=== PATIENT | male | born 1985 | race Caucasian/White ===

== ENCOUNTER 2021-03-29 02:06 | Day surgery (SDC) | payer OTHER, SELFPAY ==
[2021-03-18 15:41] VITALS: BMI 25.2
--- NOTE | 2021-03-28 13:53 | WPDANESEPPF ---
Anes - Initial Pre Proc Eval Procedure: Operation Date: 03/29/21 11:30 Proposed Procedures p Esophagogastroduodenoscopy - Quentin Beasley MD Date/Time: 03/28/21 13:53 Surgeon: Quentin Beasley MD Pre Op Diagnosis: GERD Patient Data Age: 35 Gender: M Height: 1.8 m Weight: 82 kg Allergies Allergy/AdvReac Type Severity Reaction Status Date / Time No Known Allergies Allergy Verified 03/29/21 10:19 Home Medications Medication Instructions Recorded Confirmed Type cetirizine 10 mg PO DAILY 03/18/21 03/29/21 History lansoprazole [Prevacid] 15 mg PO DAILY 03/18/21 03/29/21 History sertraline 150 mg PO DAILY 03/18/21 03/29/21 History Patient hx anesthesia problems: none Family hx anesthesia problems: none [facility] Past Medical History Medical History (Updated 09/06/20 @ 10:46 by HAY Castañeda) Anxiety Anxiety Hemorrhoid OCD (obsessive compulsive disorder) Surgical History Surgical History History of endoscopy Family History Family History Mother Patient's mother is in good health Father Hypertension Lymph node cancer Skin cancer Unknown Diabetes mellitus Heart disease Cancer Social History Social History (Updated 09/02/20 @ 10:10 by Briana Eastman) Smoking status: Never smoker Second hand tobacco smoke exposure: Yes Alcohol intake: current Drinks per week: 2 Alcohol use details: QASIM Substance use: never Substance use type: does not use Living arrangements: with family Additional occupation/education comments: pharmacist Gender identity (if verbalized by the patient): Male Spiritual care concerns: No Anes - Eval Final PreProcedure Day of Procedure 03/28/21 13:53 Patient weight: overweight Heart: regular rate and rhythm Lungs: clear to auscultation and normal air movement Airway: Mallampati scale class 1 Neurological: alert and oriented Last oral intake: >/= 8 hours ASA classification: II Emergent: no Anesthetic plan: proceed Anesthesia type and monitoring: general GIVS and standard monitoring Informed Consent: The patient's anesthetic plan and its attendant risks and benefits were discussed with the patient/family/POA. Questions were solicited and answers provided to the satisfaction of the patient/family/POA.
[2021-03-29 10:20] VITALS: BP 121/81; PULSE 54; RESP 15; TEMP 36.1; O2SAT 100; BMI 25.1
[2021-03-29] MEDS: LACTATED RINGERS 1,000 ML 150 ML IV CONT (10:22)
--- NOTE | 2021-03-29 11:58 | PM.HPGS ---
History of Present Illness History of Present Illness Consent: Risks, benefits, and alternatives have been discussed and questions answered. Patient agrees to proceed with procedure. Chief complaint: GERD Narrative: Roberto Mullins IV is a 35 year old male with intermittent solid dysphagia, had EGD years ago with dilation. Recently using lansoprazole. Review of Systems Constitutional: Constitutional: Denies headache(s) and Denies weakness Eyes: Eyes: Denies blurry vision ENT: Reports Normal hearing present, Denies headache(s) and Denies neck pain Cardiovascular: Cardiovascular: Denies chest pain and Denies dyspnea Respiratory: Respiratory: Denies dyspnea Gastrointestinal: Gastrointestinal: Reports no additional gastrointestinal complaints Genitourinary: Genitourinary: Denies dysuria Musculoskeletal: Musculoskeletal: Denies neck pain Integumentary/Breasts: Skin/Breast: Denies dry skin Neurologic: Reports Normal hearing present, Denies headache(s) and Denies weakness Psychiatric: Psychiatric: Denies anxiety Endocrine: Endocrine: Denies change in body appearance Hematologic/Lymphatic: Hematologic/Lymphatic: Denies easy bleeding Allergic/Immunologic: Allergic/Immunologic: Denies urticaria PMFSH Past Medical History Medical History (Updated 03/29/21 @ 12:11 by Quentin Beasley MD) Anxiety Anxiety Dysphagia Hemorrhoid OCD (obsessive compulsive disorder) Surgical History Surgical History History of endoscopy Family History Family History Mother Patient's mother is in good health Father Hypertension Lymph node cancer Skin cancer Unknown Diabetes mellitus Heart disease Cancer Social History Social History (Updated 09/02/20 @ 10:10 by Briana Eastman) Smoking status: Never smoker Second hand tobacco smoke exposure: Yes Alcohol intake: current Drinks per week: 2 Alcohol use details: QASIM Substance use: never Substance use type: does not use Living arrangements: with family Additional occupation/education comments: pharmacist Gender identity (if verbalized by the patient): Male Spiritual care concerns: No Meds Home Medications and Allergies Home Medications Medication Instructions Recorded Confirmed Type cetirizine 10 mg PO DAILY 03/18/21 03/29/21 History lansoprazole [Prevacid] 15 mg PO DAILY 03/18/21 03/29/21 History sertraline 150 mg PO DAILY 03/18/21 03/29/21 History Allergies Allergy/AdvReac Type Severity Reaction Status Date / Time No Known Allergies Allergy Verified 03/29/21 10:19 Vital Signs Vital Signs - 24 hr 03/29/21 10:20 Temperature 96.9 F L Pulse Rate 54 L Respiratory Rate 15 Blood Pressure 121/81 Pulse Oximetry 100 Exam Const: General: comfortable and no acute distress HENMT: General nose exam: Normal nares present Eyes: General: appearance normal, both eyes and all related structures Neck: Neck: no JVD Resp: Auscultation: clear to auscultation bilaterally Cardio: Rate: regular rate Rhythm: regular rhythm GI: Inspection: non-distended GI Palp: Yes Soft to palpation Skin: General skin exam: normal color Neuro: General: gait normal Speech: normal speech Extrem: General: normal to inspection Psych: Mental Status: mental status grossly normal Assessment and Plan Assessment and plan (1) Dysphagia: Code(s): R13.10 - Dysphagia, unspecified Status: Acute Assessment and Plan: egd with bx and possible dilation, probably EoE
[2021-03-29 12:10] VITALS: BP 85/43; PULSE 56; RESP 15; O2SAT 96
[2021-03-29 12:20] VITALS: BP 84/45; PULSE 54; RESP 17; O2SAT 96
[2021-03-29 12:30] VITALS: BP 93/45; PULSE 56; RESP 17; O2SAT 98
== END 2021-03-29 12:45 | disposition home or self-care (01) ==
PROVIDERS: PCP Family Medicine; Visit Provider Internal Medicine Gastroenterology
PROC: 0DJ08ZZ Inspection of Upper Intestinal Tract, Via Natural or Artificial Opening Endoscopic (ICD-10-PCS; CPT 43235; principal; 2021-03-29 11:30)
DX: R13.19 Other dysphagia (principal); K22.2 Esophageal obstruction; K20.80 Other esophagitis without bleeding; F41.9 Anxiety disorder, unspecified; F42.9 Obsessive-compulsive disorder, unspecified
CPT/HCPCS: 43239; 43249; 88305; C1726; J2001; J2704; J7120

== ENCOUNTER → 2021-04-08 11:37 | Outpatient (CLI) | payer OTHER, SELFPAY ==
--- NOTE | ~2021-04-08 | XR_ITS ---
EXAMINATION: XR chest 2V DATE: 04/08/2021 12:30 INDICATION: Other chest pain TECHNIQUE: PA and lateral views of the chest are obtained. COMPARISON: 06/07/2015 FINDINGS: The lungs are free of acute opacities. There is no pleural effusion or pneumothorax. The ca rdiomediastinal silhouette is normal. There is mild thoracic spondylosis. IMPRESSION: 1. No acute cardiopulmonary abnormality. Reviewed, dictated and finalized at location A.
== END ==
PROVIDERS: PCP Family Medicine; Visit Provider Physician Assistant
DX: R07.89 Other chest pain (principal)
CPT/HCPCS: 71046